=== PATIENT | female | born 1970 | race African-American/Black ===

== ENCOUNTER 2020-05-05 04:27 | Day surgery (SDC) | payer OTHER ==
[2020-04-30 15:43] VITALS: BMI 35.4
[2020-05-05] MEDS ORDERED: ceFAZolin SODIUM 1 GM VIAL ONE (06:38)
[2020-05-05] MEDS ORDERED: CEFAZOLIN 2 GM in DEXTROSE 5%-WATER - 100 ML IVPB ONE (07:00)
[2020-05-05] MEDS ORDERED: DEXAMETHASONE SOD PHOSPHATE/PF 10 MG/ML SDV ONE (07:04)
[2020-05-05] MEDS ORDERED: MIDAZOLAM HCL 2 MG/2 ML SINGLE DOSE VIAL ONE ×3 (07:05→07:24)
[2020-05-05] MEDS ORDERED: PHENAZOPYRIDINE HCL 100 MG TABLET (FP) PO ONE (07:13)
[2020-05-05] MEDS ORDERED: SUCCINYLCHOLINE CHLORIDE 200 MG/10 ML SYRINGE ONE (07:24)
[2020-05-05] MEDS ORDERED: ROCURONIUM BROMIDE 50 MG/5 ML SYRINGE ONE (07:24)
[2020-05-05] MEDS ORDERED: fentaNYL CITRATE 250 MCG/5 ML VIAL ONE (07:24)
[2020-05-05] MEDS ORDERED: PROPOFOL 20 ML ONE ×2 (07:24)
[2020-05-05 08:49] LABS: ARTERIAL BLD GAS O2 SATURATION 41.4 mmHg (95-98); ARTERIAL BLOOD GAS BASE EXCESS 5.4 mmol/L (-2-2); ARTERIAL BLOOD GAS pH 7.398 (7.350-7.450)
[2020-05-05 09:02] LABS: ARTERIAL BLOOD GAS PO2 23.9 mmHg (80-100)
[2020-05-05 09:13] LABS: BASO % 1.3 % (0-2.0); EOS % 1.7 % (0-4.5); HEMATOCRIT 24.4 % (32.4-45.2); HEMOGLOBIN 7.7 GM/dL (10.7-15.3); LYMPH % 25.8 % (8-40); MCH 20.1 pg (25.7-33.7); MCHC 31.6 g/dl (32.0-36.0); MEAN CELL VOLUME 63.7 fl (80-96); MEAN PLT VOLUME 7.4 fl (7.5-11.1); MONO % 7.8 % (3.8-10.2); NEUT % 63.4 % (42.8-82.8); PLATELET COUNT 493 K/MM3 (134-434); RBC 3.83 M/mm3 (3.60-5.2); RDW 24.7 % (11.6-15.6); WHITE BLOOD COUNT 5.4 K/mm3 (4.0-10.0)
[2020-05-05 11:33] VITALS: BP 146/71; PULSE 115; TEMP 97.6
== END 2020-05-05 11:35 | disposition home or self-care (01) ==
LOC: JASUSAT 04:27
PROVIDERS: ATTEND Obstetrics & Gynecology
PROC: 0UT9FZZ Resection of Uterus, Via Natural or Artificial Opening With Percutaneous Endoscopic Assistance (ICD-10-PCS; principal; 2020-05-05)
DX: D25.9 Leiomyoma of uterus, unspecified (principal); Z53.8 Procedure and treatment not carried out for other reasons
CPT/HCPCS: 36415; 36600; 81025; 82803; 85025; 86850; 86900; 86901; 86922

== ENCOUNTER 2021-09-13 04:18 | Inpatient (IN) | payer OTHER ==
[2021-09-10 15:48] VITALS: BMI 25.1
[2021-09-13] MEDS ORDERED: ceFAZolin SODIUM 1 GM VIAL ONE ×2 (10:29→17:54)
[2021-09-13] MEDS ORDERED: TRANEXAMIC ACID 1000 MG/10 ML VIAL IVPUSH ONE (10:30)
[2021-09-13] MEDS ORDERED: GABAPENTIN 300 MG CAPSULE PO ONE (10:30)
[2021-09-13] MEDS ORDERED: CEFAZOLIN 2 GM in DEXTROSE 5%-WATER - 100 ML IVPB ONE (10:30)
[2021-09-13] MEDS ORDERED: PHENAZOPYRIDINE HCL 100 MG TABLET (FP) PO ONE (10:30)
[2021-09-13] MEDS ORDERED: ACETAMINOPHEN 1000 MG/100 ML BAG IVPB ONE (10:30)
[2021-09-13] MEDS ORDERED: PROPOFOL 20 ML ONE ×6 (11:05→14:45)
[2021-09-13] MEDS ORDERED: SUCCINYLCHOLINE CHLORIDE 200 MG/10 ML SYRINGE ONE ×2 (11:05→12:19)
[2021-09-13] MEDS ORDERED: HYDROmorphone HCl 2 MG/ML VIAL ONE (11:05)
[2021-09-13] MEDS ORDERED: ROCURONIUM BROMIDE 50 MG/5 ML SYRINGE ONE (11:06)
[2021-09-13] MEDS ORDERED: MIDAZOLAM HCL 2 MG/2 ML SINGLE DOSE VIAL ONE ×2 (11:08)
[2021-09-13] MEDS ORDERED: ceFAZolin SODIUM 1 GM VIAL IVPB ONE (12:00)
[2021-09-13] MEDS ORDERED: NEOSTIGMINE METHYLSULFATE 0.5 MG/ML - 10 ML MDV ONE (12:55)
[2021-09-13] MEDS ORDERED: GLYCOPYRROLATE 0.2 MG/1 ML VIAL ONE (12:56)
[2021-09-13] MEDS ORDERED: LIDOCAINE HCL/PF 2% SDV 5ML VIAL ONE (12:56)
[2021-09-13] MEDS ORDERED: MINERAL OIL/PETROLATUM,WHITE 3.5 GM TUBE ONE (12:56)
[2021-09-13] MEDS ORDERED: DEXAMETHASONE SOD PHOSPHATE 4 MG/1 ML VIAL ONE (12:56)
[2021-09-13] MEDS ORDERED: PROMETHAZINE HCL 25 MG/1 ML VIAL IVPUSH PRN (13:43)
[2021-09-13] MEDS ORDERED: IBUPROFEN 800 MG/8 ML IJ IVPB PRN (13:57)
[2021-09-13] MEDS ORDERED: ONDANSETRON 4 MG/2 ML VIAL IVPUSH PRN (13:57)
[2021-09-13] MEDS ORDERED: BISACODYL 5 MG TABLET.DR (FP) PO PRN (13:57)
[2021-09-13] MEDS ORDERED: oxyCODONE HCL 5 MG TABLET PO PRN (13:57)
[2021-09-13] MEDS ORDERED: ACETAMINOPHEN 325 MG TABLET (FP) PO PRN (13:57)
[2021-09-13] MEDS ORDERED: DOCUSATE SODIUM 100 MG CAPSULE (FP) PO PRN (13:57)
[2021-09-13] MEDS: LACTATED RINGERS SOLUTION 1,000 ML IV SCH (16:10)
[2021-09-13] MEDS ORDERED: DEXTROSE 5%-WATER - 50 ML IVPB ONE (17:54)
[2021-09-13] MEDS: CEFAZOLIN 1 GM in DEXTROSE 5%-WATER - 1 GM/50 ML IVPB IVPB SCH (18:05)
[2021-09-13 20:53] LABS: HEMATOCRIT 37.8 % (32.4-45.2); HEMOGLOBIN 12.4 GM/dL (10.7-15.3); MCH 27.9 pg (25.7-33.7); MCHC 32.7 g/dl (32.0-36.0); MEAN CELL VOLUME 85.1 fl (80-96); MEAN PLT VOLUME 8.2 fl (7.5-11.1); PLATELET COUNT 351 10^3/uL (134-434); RBC 4.44 M/mm3 (3.60-5.2); RDW 14.2 % (11.6-15.6)
[2021-09-13 21:14] LABS: CALCIUM 9.3 mg/dL (8.5-10.1)
[2021-09-13 21:15] LABS: BLOOD UREA NITROGEN 9.9 mg/dL (7-18)
[2021-09-13 21:18] LABS: CREATININE 0.9 mg/dL (0.55-1.3)
[2021-09-13] MEDS: SIMETHICONE 80 MG TAB.CHEW (FP) PO PRN (23:16)
[2021-09-13] MEDS: oxyCODONE HCL 5 MG TABLET PO PRN (23:16)
[2021-09-14] MEDS ORDERED: ceFAZolin SODIUM 1 GM VIAL ONE ×2 (01:57→11:11)
[2021-09-14] MEDS ORDERED: DEXTROSE 5%-WATER - 50 ML IVPB ONE ×2 (01:57→11:11)
[2021-09-14] MEDS: CEFAZOLIN 1 GM in DEXTROSE 5%-WATER - 1 GM/50 ML IVPB IVPB SCH ×2 (02:06→11:30)
[2021-09-14 07:11] LABS: HEMATOCRIT 34.4 % (32.4-45.2); HEMOGLOBIN 11.2 GM/dL (10.7-15.3); MCH 27.5 pg (25.7-33.7); MCHC 32.4 g/dl (32.0-36.0); MEAN CELL VOLUME 84.6 fl (80-96); MEAN PLT VOLUME 8.4 fl (7.5-11.1); PLATELET COUNT 357 10^3/uL (134-434); RBC 4.07 M/mm3 (3.60-5.2); RDW 14.6 % (11.6-15.6); WHITE BLOOD COUNT 15.2 K/mm3 (4.0-10.0)
[2021-09-14] MEDS: SIMETHICONE 80 MG TAB.CHEW (FP) PO PRN ×2 (07:23→14:01)
[2021-09-14] MEDS: oxyCODONE HCL 5 MG TABLET PO PRN ×2 (07:23→18:28)
[2021-09-14 09:56] LABS: BLOOD UREA NITROGEN 10.9 mg/dL (7-18); CREATININE 0.7 mg/dL (0.55-1.3)
[2021-09-14] MEDS: ENOXAPARIN NA (PORCINE) 40 MG/0.4 ML DISP.SYRIN SQ SCH (11:00)
[2021-09-14] MEDS: LOSARTAN POTASSIUM 50 MG TABLET PO SCH (14:00)
[2021-09-14] MEDS: LACTATED RINGERS SOLUTION 1,000 ML IV SCH (20:15)
[2021-09-15] MEDS: SIMETHICONE 80 MG TAB.CHEW (FP) PO PRN ×3 (03:33→11:53)
[2021-09-15] MEDS: oxyCODONE HCL 5 MG TABLET PO PRN ×3 (03:33→11:53)
[2021-09-15] MEDS ORDERED: AMOX TR/POT CLAV 500MG/125MG TABLETS (FP) PO SCH (09:00)
[2021-09-15] MEDS: ENOXAPARIN NA (PORCINE) 40 MG/0.4 ML DISP.SYRIN SQ SCH (09:19)
[2021-09-15] MEDS: LOSARTAN POTASSIUM 50 MG TABLET PO SCH (09:19)
[2021-09-15] MEDS ORDERED: LOSARTAN POTASSIUM 50 MG TABLET PO SCH (10:00)
[2021-09-15 12:16] LABS: HEMOGLOBIN 10.7 GM/dL (10.7-15.3); LYMPH % 19.6 % (8-40); MCH 28.5 pg (25.7-33.7); MCHC 33.5 g/dl (32.0-36.0); MEAN CELL VOLUME 84.9 fl (80-96); MEAN PLT VOLUME 8.4 fl (7.5-11.1); MONO % 13.2 % (3.8-10.2); NEUT % 65.2 % (42.8-82.8); PLATELET COUNT 332 10^3/uL (134-434); RBC 3.77 M/mm3 (3.60-5.2); RDW 14.8 % (11.6-15.6); WHITE BLOOD COUNT 9.4 K/mm3 (4.0-10.0)
[2021-09-15 13:53] VITALS: BP 135/83; PULSE 105; TEMP 98.6
[2021-09-15] MEDS ORDERED: IBUPROFEN 600 MG TABLET (FP) PO SCH (14:30)
== END 2021-09-15 17:45 | disposition home or self-care (01) | DRG 743 ==
LOC: J2C 04:18 → J3W 17:00
PROVIDERS: ADMIT Obstetrics & Gynecology; ATTEND Obstetrics & Gynecology
PROC: 0UB10ZZ Excision of Left Ovary, Open Approach (ICD-10-PCS; 2021-09-13)
PROC: 0UT90ZZ Resection of Uterus, Open Approach (ICD-10-PCS; principal; 2021-09-13 11:30)
DX: D25.9 Leiomyoma of uterus, unspecified (principal); N83.12 Corpus luteum cyst of left ovary; N72 Inflammatory disease of cervix uteri; N80.0 Endometriosis of uterus; R10.2 Pelvic and perineal pain
CPT/HCPCS: 36415; 80048; 81025; 85025; 85027; 86850; 86900; 86901; 88302-TC; 88307-TC; 94760

== ENCOUNTER 2021-09-27 02:05 | Emergency (ER) | payer OTHER ==
[2021-09-27 02:34] VITALS: BP 146/77; PULSE 89; RESP 17; TEMP 99.3; BMI 38.4
== END 2021-09-27 03:05 | disposition home or self-care (01) ==
LOC: JER 02:05
DX: T81.89XA Other complications of procedures, not elsewhere classified, initial encounter (principal); Z48.01 Encounter for change or removal of surgical wound dressing
CPT/HCPCS: 99283-25